=== PATIENT | female | born 2000 | race Caucasian/White ===

== ENCOUNTER 2024-03-27 17:14 | Day surgery (SDC) | payer SELFPAY ==
[2024-03-27] VITALS (7 sets, daily range): BP systolic 102–126; BP diastolic 63–82; BMI 18.0
--- NOTE | 2024-03-27 09:16 | ED.GENMED ---
History of Present Illness
General
Chief Complaint: Abdominal Pain
Time Seen by Provider: 03/27/24 09:16
History of Present Illness
History of Present Illness:
TIME OF INITIAL ENCOUNTER: 9:20 AM
HPI: The patient presents due to rather severe left lower quadrant pain that started at 6 AM today. She has had ovarian cysts in the past. This is associated with nausea and some vomiting. She has had some loose stool but no diarrhea. She tells
me this pain feels similar to when she was diagnosed with ovarian cyst in the past.
EXAM:
GENERAL: The patient appears very uncomfortable, she is retching
HEENT: Slightly dry oral mucosa
CARDIOVASCULAR: No murmurs, normal heart rate, regular rhythm, No chest wall tenderness
PULMONARY: No respiratory distress, breath sounds are clear and equal
ABDOMEN: Soft with no peritoneal signs, moderate left lower quadrant tenderness
NEUROLOGIC: Excellent strength all extremities, no coordination deficits
PSYCHIATRIC: Appropriate mental status, normal insight and judgement, appears somewhat upset
EXTREMITIES: Nontender, no edema, moves all extremities equally
SKIN: No rash, no lesions
NUMBER AND COMPLEXITY OF PROBLEMS ADDRESSED AT THE ENCOUNTER
� Chronic conditions affecting care: Eosinophilic esophagitis, ovarian cyst
� Acute Exacerbation and/or Progression of Chronic Illness: This is an acute problem
� Differential Diagnosis includes: Exacerbation ovarian cyst, ovarian torsion, cannabinoid hyperemesis syndrome
AMOUNT AND/OR COMPLEXITY OF DATA TO BE REVIEWED AND ANALYZED
� I performed an independent evaluation of and my interpretation is:
EKG:
CT:
X-rays:
Laboratory Studies: White count 12.0, hemoglobin 16.4, hCG negative, total bili minimally elevated, lipase normal
Other: Ultrasound imaging concerning for left ovarian torsion
� Review of other/old records: No old records available for review in [facility]
� Clinical information was obtained by an independent historian: I spoke to significant other at bedside
� Prescriptions/Medications Considered but not given:
� Further testing considered but not performed:
RISK OF COMPLICATIONS AND/OR MORBIDITY OR MORTALITY OF PATIENT MANAGEMENT
� Social determinants of health affecting care: Lives at home
� Discussion with other providers: I received a phone call from at around 2:20 PM and he was concerned about intermittent torsion. I then notified Dr. Lewis.
� Escalation of care including admission/observation vs risk of discharge considered: See below
ANY OTHER UPDATES:
2:20 PM: I notified patient of the ultrasound. The patient states that symptoms still persist., Dr. Lewis evaluated the patient around 2:45 PM and planning to take the OR.
Phy Exam
Physical Exam
Physical Exam:
See HPI
Course
Orders/Labs/Results
Orders:
Orders
03/27/24 09:16
US Pelvis W Transvag Combined Urgent
Reason For Exam: abrupt LLQ pain
03/27/24 09:24
Complete Blood Count/With Diff Urgent
Comprehensive Metabolic Panel Urgent
HCG, Serum Qualitative Screen Urgent
Comment: ADD
Lipase Urgent
03/27/24 09:27
0.9% Sodium Chloride 1000 ml [Nss] 1,000 ml IV BOLUS
Ketorolac [Toradol] 15 mg IV NOW STA
Ondansetron Injectable [Zofran] 4 mg IV NOW STA
03/27/24 09:31
Add On- LAB Urgent
Tests Added?: serum hcg
03/27/24 Lunch
NPO
Allow oral meds: No
Allow clear liquids: No
03/27/24 10:04
HYDROmorphone [Dilaudid] 1 mg .ROUTE .STK-MED ONE
03/27/24 10:06
HYDROmorphone [Dilaudid] 1 mg IV NOW STA
03/27/24 14:32
HYDROmorphone [Dilaudid] 0.5 mg IV NOW STA
03/27/24 15:00
0.9% Sodium Chloride 1000 ml [Nss] 1,000 ml IV 125 mls/hr
03/27/24 15:04
Fentanyl Citrate/Pf [Sublimaze] 100 mcg .ROUTE .STK-MED ONE
Lidocaine 2% Mpf [Xylocaine Mpf 2%] 100 mg .ROUTE .STK-MED ONE
Midazolam HCl [Versed] 2 mg .ROUTE .STK-MED ONE
Rocuronium [place] [Rocuronium] 50 mg .ROUTE .STK-MED ONE
Abnormal Lab Results
03/27/24
09:24
WBC 12.0 H 10^3/uL
(4.8-10.8)
Hgb 16.4 H g/dL
(12.0-16.0)
MCH 31.3 H pg
(27.0-31.0)
Abs Immat Gran (auto) 0.1 H 10^3/uL
(0-0.05)
Absolute Neuts (auto) 7.7 H 10^3/uL
(1.4-6.5)
Absolute Eos (auto) 1.1 H 10^3/uL
(0-0.7)
Eosinophils % 9.2 H %
(0-6)
Carbon Dioxide 20 L mmol/L
(22-30)
Glucose 139 H mg/dl
(70-99)
Calcium 10.3 H mg/dl
(8.4-10.2)
Total Bilirubin 2.0 H mg/dl
(0.2-1.3)
Albumin 5.1 H g/dl
(3.5-5.0)
03/27/24 09:24
03/27/24 09:24
Vital Signs
Initial and Last Documented VS:
Initial Vital Signs
Pulse Resp BP Pulse Ox
59 18 112/65 97
03/27/24 09:05 03/27/24 09:05 03/27/24 09:05 03/27/24 09:05
Last Documented Vital Signs
Pulse Resp BP Pulse Ox
54 18 102/69 98
03/27/24 10:00 03/27/24 09:05 03/27/24 15:00 03/27/24 15:01
*Critical Care Note
Total Time (30-74mins, 75-104mins- exclusive of procedures): Not Applicable
ED Attending Note
-
Portions of this chart may have been created with voice recognition software.� Occasional wrong word or��sound alike� substitutions may have occurred due to the inherent limitations of voice recognition software.
Discharge Plan
Departure
Patient Disposition: OR
Date of Disposition: 03/27/24
Time of Disposition: 15:04
Presentation/result/management discussed w/ accepting MD/DO: Dr. Lewis
Patient with high blood pressure during this ER visit?: Yes
Discharge Problem:
Ovarian torsion
Referrals:
NONE,* [Family Provider] -
Interventions
Interventions:
*Risk Screen - Suicide Last Done: 03/27/24 09:05
*General Assessment Last Done: 03/27/24 09:05
*Neglect/Abuse Screening Last Done: 03/27/24 09:05
ED- Fall Risk Assessment Last Done: 03/27/24 09:45
*ED COVID-19 Vaccine History Last Done: 03/27/24 09:22
PF-Vzenur-Jrpxepkmke Assessment Last Done: 03/27/24 09:42
Discharge Date and Time
Print Language: SYRIAC
[2024-03-27] MEDS: TORADOL 15 MG IV (09:29)
[2024-03-27] MEDS: ZOFRAN 4 MG IV (09:30)
[2024-03-27] MEDS: NSS 1000 IV (09:32)
[2024-03-27 09:37] LABS: % Basophils 0.6 % (0-2); % Eosinophils 9.2 % (0-6); % Immature Granulocytes 0.5 % (0-0.5); % Lymphocytes 21.8 % (20.5-51.1); % Monocytes 3.9 % (1.7-9.3); Absolute Basophils 0.1 10^3/uL (0-0.2); Absolute Eosinophils 1.1 10^3/uL (0-0.7); Absolute Immature Granulocytes 0.1 10^3/uL (0-0.05); Absolute Lymphocytes 2.6 10^3/uL (1.2-3.4); Absolute Monocytes 0.5 10^3/uL (0.1-0.6); Absolute Neutrophils 7.7 10^3/uL (1.4-6.5); Hematocrit 46.2 % (37.0-47.0); Hemoglobin 16.4 g/dL (12.0-16.0); Mean Corp Hgb Conc. 35.5 g/dL (33.0-37.0); Mean Corpuscular Hgb 31.3 pg (27.0-31.0); Mean Corpuscular Volume 88.2 fL (81.0-99.0); Mean Platelet Volume 9.2 fL (7.4-10.4); Nucleated Red Blood Cells % 0 %; Platelet Count 335 10^3/uL (130-400); Red Blood Cell Count 5.24 10^6/uL (4.20-5.40); Red Cell Dist. Width 11.9 % (11.5-14.5)
[2024-03-27] MEDS: DILAUDID 1 MG IV (10:06)
[2024-03-27 10:15] LABS: ALT (SGPT) 28 U/L (0-35); AST (SGOT) 35 U/L (14-36); Albumin 5.1 g/dl (3.5-5.0); Alkaline Phosphatase 74 U/L (38-126); Blood Urea Nitrogen 10 mg/dl (7-17); Calcium 10.3 mg/dl (8.4-10.2); Carbon Dioxide 20 mmol/L (22-30); Chloride 105 mmol/L (98-107); Estimated Creatinine Clearance 76 ml/min; Glucose 139 mg/dl (70-99); Potassium 3.9 mmol/L (3.5-5.1); Sodium 141 mmol/L (135-145); Total Protein 7.8 g/dl (6.3-8.2); eGFR > 60.00
[2024-03-27 10:22] LABS: HCG, Serum Qualitative Screen Negative
[2024-03-27 10:49] LABS: Lipase 51 U/L (23-300)
[2024-03-27] MEDS: DILAUDID 0.5 MG IV (14:36)
--- NOTE | 2024-03-27 15:17 | HP.FOC2 ---
Focused History & Physical
Chief Complaint
HPI:
Chief Complaint: Abdominal Pain
HPI / Indication for Planned Procedure: 23yo G0 presents from home with c/o abdominal pain and vomiting sine this morning that was not improving. She admits to a similar episode of abdominal pain last night but this resolved on its own. She does
admit to a h/o ovarian cysts that she has been to the ER for but never needed surgery. she was on OCP in the past for cysts but stopped this some time ago. She is not currently under the care of a [employer]. Since presenting to the ER. She has gotten
multiple doses of dilaudid, as well as toradol and Zofran and now is starting to feel better. Per ER note, on presentation she was retching in position. No VB. +loose BM today.
Relevant Past Medical History: Other (Asthma, Eosinophilic Esophagitis- required a G-tube as a child, Anxiety)
Relevant Social History: ETOH (occasional), Substance Abuse (medical marijuana) and Tobacco Use (vaping)
Relevant Family History: Positive for (M.aunt & MGF- colon CA, MGM- Heart disease)
Relevant Past Surgical History: Positive for (G- tube placement and removal )
Review of Systems
Review of Pertinent Systems: All Systems Negative Except for the Following Positives (per HPI)
Medication
See Medication form for detailed medications: Yes
Medications Reviewed: Yes
Allergies and Reactions
Patient has Allergies: Yes
Noted Allergies and Reactions:
Allergy/AdvReac Type Severity Reaction Status Date / Time
egg Allergy Unknown Verified 03/27/24 09:03
Egg Derived Allergy Unknown Verified 03/27/24 09:03
tree nut Allergy Unknown Verified 03/27/24 09:03
dairy Allergy Unknown Uncoded 03/27/24 09:03
Pertinent Physical Exam
All Other Systems: Negative
Abdomen: Normal (No r/g, nt, nd. )
Diagnosis / Assessment
23yo G0 with Abdominal pain suspect Left ovarian torsion
Plan / Procedure
Patient without acute abdomen on exam but per ER physician her initial presentation was markedly different and she was writhing in pain. Her US is concerning for a torsion with a markedly enlarged Left ovary. I advised this is something that
requires immediate surgical intervention and persistent torsion can compromise and lead to loss of ovarian function. We therefore reviewed proceeding with a Diagnostic Laparoscopy, possible left ovarian cystectomy, possible left oophorectomy,
possible laparotomy. Risks of bleeding, infection, injury to bowel. bladder, ureters, and other surrounding structures reviewed. Patient expressed understanding and consents were signed.
Advised ultimately the goal is conserve this ovary.
Reviewed post-op instructions as well.
Discussed resuming OCP after this, to reduce the risk of cyst recurrence.
Vital Signs / Labs
-
Vital Signs and Labs:
Pulse Resp BP Pulse Ox
54 18 102/69 98
03/27/24 10:00 03/27/24 09:05 03/27/24 15:00 03/27/24 15:01
03/27/24 09:24
03/27/24 09:24
03/27/24
09:24
WBC 12.0 H
Hgb 16.4 H
MCH 31.3 H
Abs Immat Gran (auto) 0.1 H
Absolute Neuts (auto) 7.7 H
Absolute Eos (auto) 1.1 H
Eosinophils % 9.2 H
Carbon Dioxide 20 L
Glucose 139 H
Calcium 10.3 H
Total Bilirubin 2.0 H
Albumin 5.1 H
HCG: Neg
Imaging Data
-
Pelvic US: Uterus 6.8x 2.9x 4.1cm. EMS 7mm. Left Ovary enlarged 8.4x 2.6x 5.6cm with a 3.8cm hypoechoic mass - probable hemorrhagic cyst) and 2 simple cysts 2.8 & 1.8cm. There is minimal arterial flow to the upper portion of the left ovary and
findings are highly suspicious for left ovarian torsion. Normal flow to right ovary
No free fluid in pelvis.
== END 2024-03-27 19:05 | disposition home or self-care (01) ==
LOC: PACU 17:14
PROVIDERS: ATTENDING PHYSICIAN Obstetrics & Gynecology; EMERGENCY PHYSICIAN Emergency Medicine
DX: R10.32 Left lower quadrant pain (principal); N83.512 Torsion of left ovary and ovarian pedicle
CPT/HCPCS: 58661; 88305; 76830; 76856; 80053; 83690; 84703; 85025; 96361; 96374; 96375; 96376; 99285; C1776